=== PATIENT | female | born 1970 | race Caucasian/White ===

== ENCOUNTER → 2016-12-25 | Outpatient (CLI) | payer MEDICARE, OTHER ==
[~2016-12-25] MED LIST: ACTOS30 MG PO; ADVAIR 1001 DISK W/D PO; ALBUTEROL MININEB NEB; ALBUTEROL17 GM INH; ALDACTONE25 MG PO; AMBIEN10 MG PO; AMITRYPTYLINE PO; APIDRA (NF100 UNITS/ SUBQ; ATARAX PO; BACTRIM DS TABL1 TA1 PO; BYSTOLIC20 MG PO; BYSTOLIC5 MG PO; CARAFATE PO; CELEBREX PO; CYMBALTA30 MG PO; ELIMITE60 GM TOP; FERRO-TIME325 MG PO; FUROSEMIDE40 MG PO; GLUCOTROL PO; HUMALOG MI100 UNIT/3 SQ; HUMALOG100 U/ML SUBQ; HYDRALAZINE HC100 MG PO; HYDROCHLOROTH12.5 MG PO; INSULIN REGULAR; INVOKANA100 MG PO; ISORDIL40 MG PO; KCL PO; KOMBIGLYZE XR1 EAC1 PO; LANTUS SOLOSTAR3 ML SUBQ; LEVAQUIN250 MG PO; LEVAQUIN750 M1 PO; LEVEMIR100 UNITS/ SUBQ; LIPITOR PO; LIPITOR40 MG PO; LOPRESSOR PO; LORTAB 10-5001 EACH PO; LOSARTAN-HCTZ1 EAC2 PO; LYRICA PO; LYRICA75 MG PO; MAGOX 400400 MG PO; MEDROL4 MG/DOSE- PO; METFORMIN HCL500 M1 PO; METFORMIN PO; METHADOSE5 MG PO; NEURONTIN PO; NITROGLYCERIN0.4 MG SL; NOVOLIN 70/30 V10 ML INJ; NOVOLOG FL100 UNIT/1 SUBQ; ONDANSETRON HCL4 M1 PO; OXYCONTIN15 MG PO; PEPCID AC20 M2 PO; PHENERGAN25 M1 DOB; PREDNISONE PO; PROTONIX20 MG PO; REGLAN10 MG PO; SINGULAIR PO; SYMBICORT 160/4.6 GM IH; TRIBENZOR 20-51 EACH PO; TRICOR145 MG PO; TYLENOL325 M1 PO; ZOLOFT PO; ZYRTEC PO; ZYRTEC10 M2 PO; [UNRECOGNIZED DRUG - OTHER]
--- NOTE | ~2016-12-25 | CR184 ---
[facility] A Service of [facility] RADIOLOGY TEXT RESULTS PATIENT: ARIE CLEMONS LOCATION: [facility] : 70 UNIT #: [id number] AGE: [address]: Robinson Wright MD SEX: F ORDER DR: [id number] [facility]. [place], [place] [address] [id number] O MR#: [id number] Acc #: [id number] NAME: ARIE CLEMONS. : 1970 SEX: F STUDY DATE/TIME: 12/25/2016 14:21 UNIT: [facility] ROOM: STUDY DESCRIPTION: CR Lumbar Spine Min 4 Views Attending Physician: Robinson Wright M.D. Ordering Physician: Robinson Wright M.D. Primary Care Physician: Monet Partida M.D. MEDICAL IMAGING REPORT This report is preliminary unless electronic signature is present EXAM Lumbar spine series including lateral flexion and extension views, 12/25/2016 HISTORY 46-year-old female with chronic back pain. History of degenerative disc disease. Implanted spinal neurologic stimulator. TECHNIQUE Three-view lumbar spine series including additional lateral flexion and extension views. FINDINGS No acute or chronic fracture deformity or additional osseous lesion. Mild degenerative disc space narrowing throughout the lumbar spine, greatest at L1-2 and L5-S1. Mild to moderate lower lumbar degenerative facet arthropathy. Lumbar vertebral alignment is normal and is maintained in flexion and extension. No significant change since the previous study of 11/11/2014. IMPRESSION 1. No acute osseous abnormality. 2. No change since 11/11/2014. 3. Mild degenerative disc space narrowing throughout the lumbar spine, greatest at L1-2 and L5-S1. 4. Lumbar vertebral alignment is normal and is maintained in flexion and extension. Dictated by... [facility] A Service [facility] RADIOLOGY TEXT RESULTS PATIENT: ARIE CLEMONS LOCATION: [facility] : 70 UNIT #: [id number] AGE: [address]: Robinson Wright MD SEX: F ORDER DR: Jose Steel M.D. THIS IS AN ELECTRONICALLY VERIFIED REPORT Jose Steel M.D. at 12/26/2016 4:05 AM SOLE/homar TD: 12/26/2016 01:25 JOB #: [id number] MEDICAL IMAGING REPORT Page 1 of 1 COPY
== END | disposition home or self-care (01) ==
LOC: CRAD 14:07
DX: M51.36 Other intervertebral disc degeneration, lumbar region (principal); M47.816 Spondylosis without myelopathy or radiculopathy, lumbar region; M51.37 Other intervertebral disc degeneration, lumbosacral region
CPT/HCPCS: 72110